=== PATIENT | male | born 1985 | race African-American/Black ===

== ENCOUNTER 2017-03-06 15:53 | Emergency (ER) | payer MEDICAID ==
[~2017-03-06] VITALS: Ht 185.4 cm; Wt 111.1 kg
[~2017-03-06 15:53] MED LIST: AZITTAB11 PO; CYCL5TAB89 PO; IBUP800T24 PO
[2017-03-06] MEDS ORDERED: fentaNYL CITRATE 100 MCG/2 ML VL IV ONE (17:00)
[2017-03-06] MEDS ORDERED: MIDAZOLAM HCL 5 MG/ML-1ML VIAL IV ONE (17:00)
[2017-03-06 18:35] VITALS: BP 135/62
== END 2017-03-06 18:35 | disposition home or self-care (01) ==
LOC: EDBD 15:53 → ER 15:53
DX: S53.105A Unspecified dislocation of left ulnohumeral joint, initial encounter (principal); W21.89XA Striking against or struck by other sports equipment, initial encounter; Y93.61 Activity, american tackle football; Y99.8 Other external cause status; Y92.89 Other specified places as the place of occurrence of the external cause
CPT/HCPCS: 24600; 73070; 73080; 99285; J2250; J3010